=== PATIENT | female | born 1970 | race Caucasian/White ===

== ENCOUNTER 2017-04-08 10:26 | Observation (INO) | payer BC ==
[~2017-04-08 10:26] MED LIST: METRONIDAZOLE PREMIXED IVPB 50 ML IVPB SCH
[2017-04-08 10:32] VITALS: BMI 36.7
--- NOTE | 2017-04-08 10:40 | PDOC ---
History of Present Illness - General History Source: Patient Exam Limitations: No Limitations - History of Present Illness Initial Comments: 04/08/17 11:23 The patient is a 46 year old female, with significant past medical history of a congenital heart disease (s/p surgical repair as an and cardiac cath at age 3), blood clotting disorder (Pt is unsure of the name), and recently diagnosed HTN, who presents to the emergency room with 3 days of severe, intermittent, lower abdominal pain that is 8/10 in severity and described as crampy. She explains that the abdominal pain began 3 days ago, and notes that multiple episodes of watery diarrhea started simultaneously. She initially thought that she was experiencing gas pain, so she took tums- which provided no relief. The pain is sometimes alleviated when laying on her stomach, however, the pain is so severe that it has been keeping her up at night. She reports associated symptoms of nausea, vomiting, diarrhea, and loss of appetite since the pain began. She notes that she recently changed her diet because of a diagnosis of HTN. She has been eating more vegetables, less red meat, no salt, and stopped drinking coffee, over the past 2 weeks. Denies recent travel. Denies fever, chills. Denies urinary symptoms. Allergies: none reported PCP: none <Maisha Green - Last Filed: 04/08/17 14:37> - General History Source: Patient Exam Limitations: No Limitations <Zakiya Buenrostro - Last Filed: 04/08/17 19:15> - General Chief Complaint: Pain Stated Complaint: ABD PAIN Time Seen by Provider: 04/08/17 10:36 Past History <Maisha Green - Last Filed: 04/08/17 14:37> - Past Medical History Other medical history: NONE - Surgical History Cardiac Surgery: Yes (CARDIAC CATH AT AGE 3) - Psycho/Social/Smoking Cessation Hx Anxiety: No Suicidal Ideation: No Smoking History: Never smoked Hx Alcohol Use: Yes (SOCIAL) Drug/Substance Use Hx: No Substance Use Type: None <Zakiya Buenrostro - Last Filed: 04/08/17 19:15> - Past Medical History Allergies/Adverse Reactions: Allergies Allergy/AdvReac Type Severity Reaction Status Date / Time No Known Allergies Allergy Verified 04/08/17 10:32 Home Medications: Ambulatory Orders NK [No Known Home Medication] 04/08/17 Review of Systems - Review of Systems Able to Perform ROS?: Yes Comments:: 04/08/17 11:27 GENERAL/CONSTITUTIONAL: No: fever, chills, weakness HEAD, EYES, EARS, NOSE AND THROAT: No: change in vision, ear pain, discharge, sore throat, throat swelling. CARDIOVASCULAR: No: chest pain, lightheadedness, palpitations, syncope RESPIRATORY: No: cough, shortness of breath, wheezing, hemoptysis, stridor. GASTROINTESTINAL: +nausea, +vomiting, +lower abdominal pain, +diarrhea, + loss of appetite secondary to the pain. GENITOURINARY: No: dysuria, hematuria, frequency, urgency, flank pain. MUSCULOSKELETAL: No: back pain, neck pain, joint pain, muscle swelling or pain SKIN: No: lesions, pallor, rash or easy bruising. NEUROLOGIC: No: headache, vertigo, paresthesias, weakness ENDOCRINE: No: unexplained weight gain or loss HEMATOLOGIC/LYMPHATIC: No: anemia, easy bleeding, swelling nodes <Maisha Green - Last Filed: 04/08/17 14:37> *Physical Exam - Vital Signs Last Vital Signs Temp Pulse Resp BP Pulse Ox 99.1 F 106 H 20 156/92 97 04/08/17 10:29 04/08/17 10:29 04/08/17 10:29 04/08/17 10:29 04/08/17 10:29 - Physical Exam Comments: 04/08/17 11:28 GENERAL: The patient is in no acute distress. EYES: PERRLA, EOMI, sclera anicteric, conjunctiva clear. LUNGS: Breath sounds equal, clear to auscultation bilaterally. No wheezes, and no crackles. HEART: +tachycardic, +murmur 3/6 along he left sternal border. Regular rhythm normal S1 and S2 without rub or gallop. ABDOMEN: +epigastric and lower abdominal tenderness to palpation. Soft, normoactive bowel sounds. No guarding, no rebound. EXTREMITIES: Normal range of motion, no edema. No clubbing or cyanosis. No erythema, or tenderness. NEUROLOGICAL: Cranial nerves II through XII grossly intact. Normal speech. No focal neurological deficits. MUSCULOSKELETAL: Back nontender to palpation, no CVA tenderness SKIN: Warm, Dry, normal turgor, no rashes or lesions noted. <Maisha Green - Last Filed: 04/08/17 14:37> - Vital Signs Last Vital Signs Temp Pulse Resp BP Pulse Ox 99.1 F 106 H 20 156/92 97 04/08/17 10:29 04/08/17 10:29 04/08/17 10:29 04/08/17 10:29 04/08/17 10:29 <Zakiya Buenrostro - Last Filed: 04/08/17 19:15> Heart Score/ECG Review #1 ECG reviewed & interpreted by me at: 19:13 04/08/17 19:13 Sinus tachycardia, rate of 112 bpm Right axis deviation RVH T wave inversion v2 no st elevations or depressions RSR' v1, v2 <Zakiya Buenrostro - Last Filed: 04/08/17 19:15> ED Treatment Course - LABORATORY CBC & Chemistry Diagram: 04/08/17 11:00 04/08/17 11:00 - ADDITIONAL ORDERS Additional order review: 04/08/17 11:00 RBC 5.52 H MCV 76.5 L MCHC 34.6 RDW 14.3 MPV 7.9 Neutrophils % 79.5 Lymphocytes % 12.9 Monocytes % 6.6 Eosinophils % 0.6 Basophils % 0.4 - RADIOLOGY Radiograph Interpretation: 04/08/17 14:37 EXAM#: TYPE/EXAM: RESULT: [id number] CT/ABDOMEN PELVIS CT WITH CONTRAST History : abdominal pain CT Scan of the abdomen and pelvis with oral and IV contrast; 90 cc Omnipaque 350 The liver, spleen, adrenal glands and pancreas are unremarkable. There are no gallstones. There is no hydronephrosis, renal masses or renal calculi. There is no retroperitoneal lymphadenopathy. There is no abdominal aortic aneurysm. The appendix is not identified There are no fluid collections in the abdomen or pelvis. There is no bowel obstruction. The bowel probably the mid and distal small bowel in the right lower quadrant and right upper quadrant is abnormal with mural thickening and surrounding inflammatory changes. The urinary bladder is unremarkable. The uterus is heterogeneous. Possibly representing a myomatous uterus IMPRESSION: Appendix not identified Right lower quadrant/right upper quadrant small bowel is abnormal with mural thickening and periinflammatory changes. Suggestive of a type of ileitis or bowel inflammation possibly infectious. Because the appendix is not identified its role in the inflammation cannot be excluded therefore further evaluation recommend Reported By: Rodney Nicholson MD 04/08/17 1429 - Medications Given in the ED: ED Medications Discontinued Medications Generic Name Dose Route Start Last Admin Trade Name Chintan PRN Reason Stop Dose Admin Morphine Sulfate 4 mg 04/08/17 11:06 04/08/17 11:20 Morphine Injection - IVPB 04/08/17 11:07 Not Given NOW ONE Ondansetron HCl 4 mg 04/08/17 11:06 04/08/17 11:20 Zofran Injection IVPB 04/08/17 11:07 4 mg ONCE ONE Administration <Maisha Green - Last Filed: 04/08/17 14:37> - LABORATORY CBC & Chemistry Diagram: 04/08/17 11:00 04/08/17 11:00 <Zakiya Buenrostro - Last Filed: 04/08/17 19:15> Medical Decision Making - Medical Decision Making 04/08/17 10:39 A portion of this note was documented by scribe services under my direction. I have reviewed the details of the note, within reason, and agree with the documentation with the following case summary and management plan written by me. Nursing documentation reviewed and incorporated into medical decision making 04/08/17 11:04 This is a 46-year-old female with a prior history of congenital heart disease ( status post surgical repair as the infant, status post cardiac catheter at age 3 ) disease, history of bleeding diathesis, recent diagnosis of hypertension who presents emergency department with abdominal pain. States that her symptoms began 3 days ago. At that time she noted lower abdominal pain, intractable diarrhea, vomiting. Since then she's had decreased po intake Each time that she has tried to eat, she feels nauseous No recent travel No raw sea foods No prior episodes like this On examination Tachy, LILLIE 3/6 Abd tenderness to palpation DD: gastroenteritis, colitis, sbo, diverticulitis Will do labs, ct abd and pelvis Morphine and zofran 04/08/17 11:07 04/08/17 13:09 Laboratory Tests 04/08/17 04/08/17 04/08/17 11:00 11:00 11:23 WBC 11.8 H Hgb 14.6 Hct 42.3 Plt Count 272 Sodium 139 Potassium 4.0 Chloride 103 Carbon Dioxide 25 Anion Gap 11 BUN 8 Creatinine 0.5 L Random Glucose 98 Total Amylase 22 L Lipase 95 Serum , Qual Negative Rectal temp still not performed Pt found hunched over bed in pain Refusing morphine Will try tylenol IV 04/08/17 14:59 CT demonstrates: bowel wall thickening in the RLQ Appendix not visualized Will start: Levaquin and Flagyl IV tylenol for pain Admit to hospitalist 04/08/17 14:59 04/08/17 15:49 Case reviewed with STEVEN Lorenz Call placed to Dr Machado <Zakiya Buenrostro - Last Filed: 04/08/17 19:15> *DC/Admit/Observation/Transfer - Attestations Scribe Attestion: 04/08/17 11:29 Documentation prepared by BRITTNEE Humphries, acting as medical billing specialist for Zakiya Buenrostro MD. <Maisha Green - Last Filed: 04/08/17 14:37> - Discharge Dispostion Admit: Yes <Zakiya Buenrostro - Last Filed: 04/08/17 19:15> Diagnosis at time of Disposition: Abdominal pain Qualifiers: Abdominal location: unspecified location Qualified Code(s): R10.9 - Unspecified abdominal pain - Discharge Dispostion Condition at time of disposition: Stable
[2017-04-08] MEDS ORDERED: morphine CARPU-JECT 4 MG/1 ML DISP.SYRIN IVPB ONE (11:06)
[2017-04-08] MEDS ORDERED: SODIUM CHLORIDE 1,000 ML IV STA (11:06)
[2017-04-08] MEDS ORDERED: ONDANSETRON 4 MG/2 ML VIAL IVPB ONE (11:06)
[2017-04-08 11:10] LABS: BASOPHIL 0.4 % (0-2.0); EOSINOPHIL 0.6 % (0-4.5); MCH 26.4 pg (25.7-33.7); MCHC 34.6 g/dl (32.0-36.0); MEAN CELL VOLUME 76.5 fl (80-96); MEAN PLT VOLUME 7.9 fl (7.5-11.1); NEUTROPHILS 79.5 % (42.8-82.8); PLATELET COUNT 272 K/MM3 (134-434); RDW 14.3 % (11.6-15.6); WHITE BLOOD COUNT 11.8 K/mm3 (4.0-10.0)
[2017-04-08] MEDS ORDERED: morphine CARPU-JECT 4 MG/1 ML DISP.SYRIN ONE (11:10)
[2017-04-08] MEDS ORDERED: ONDANSETRON 4 MG/2 ML VIAL ONE (11:10)
[2017-04-08 11:30] LABS: ALK PHOS 75 U/L (45-117); AMYLASE 22 U/L (25-115); ANION GAP 11 (8-16); BILIRUBIN,TOTAL 1.1 mg/dL (0.2-1.0); CALCIUM 8.9 mg/dL (8.5-10.1); CO2 25 mmol/L (21-32); CREATININE 0.5 mg/dL (0.55-1.02); GLUCOSE,RANDOM 98 mg/dL (74-106); SGOT/AST 5 U/L (15-37); SGPT/ALT 19 U/L (12-78); TOT PROT 7.3 g/dl (6.4-8.2)
[2017-04-08] MEDS ORDERED: LEVOFLOXACIN 500 MG IVPB 100 ML IVPB ONE ×2 (14:57→15:59)
[2017-04-08] MEDS ORDERED: METRONIDAZOLE 500 MG PREMIXED 100 ML IVPB ONE ×2 (14:57→15:00)
[2017-04-08] MEDS ORDERED: ACETAMINOPHEN 1000 MG/100 ML VIAL (NON FORMULARY) IVPB ONE (14:59)
[2017-04-08] MEDS ORDERED: ACETAMINOPHEN INJECTION 100 ML IVPB ONE (15:00)
--- NOTE | 2017-04-08 18:26 | CONSULT ---
- Consultation REQUESTING PROVIDER: Olegario Buenrostro MD CONSULT REQUEST: We have been asked to surgically evaluate this patient for ( specify). 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 PMHx: congenital heart disease; corrected PSHx: C_S ROS-as above only Home Medications Medication Instructions Recorded NK [No Known Home Medication] 04/08/17 Allergies Allergy/AdvReac Type Severity Reaction Status Date / Time No Known Allergies Allergy Verified 04/08/17 10:32 PHYSICAL EXAM: GENERAL: Awake, alert, and fully oriented, in no acute distress. HEAD: Normal with no signs of trauma. EYES: sclera anicteric, conjunctiva clear. NECK: Normal ROM, supple without lymphadenopathy, JVD, or masses. ABDOMEN: Soft, nontender, not distended, normoactive bowel sounds, no guarding, no rebound, no masses. No organomegaly. No hernias MUSCULOSKELETAL: Normal ROM at all joints. No bony deformities or tenderness. No CVA tenderness. UPPER EXTREMITIES: 2+ pulses, warm, well-perfused. No cyanosis. Cap refill <2 seconds. No peripheral edema. LOWER EXTREMITIES: 2+ pulses, warm, well-perfused. No calf tenderness. No peripheral edema. NEUROLOGICAL: Normal speech, gait not observed. PSYCH: Cooperative. Good eye contact. Appropriate mood and affect. SKIN: Warm, dry, normal turgor, no rashes or lesions noted. Vital Signs Temperature 99.1 F 04/08/17 10:29 Pulse Rate 98 H 04/08/17 16:00 Respiratory Rate 18 04/08/17 16:00 Blood Pressure 143/91 04/08/17 16:00 O2 Sat by Pulse Oximetry (%) 99 04/08/17 16:00 Lab Results WBC 11.8 K/mm3 (4.0-10.0) H 04/08/17 11:00 RBC 5.52 M/mm3 (3.60-5.2) H 04/08/17 11:00 Hgb 14.6 GM/dL (10.7-15.3) 04/08/17 11:00 Hct 42.3 % (32.4-45.2) 04/08/17 11:00 MCV 76.5 fl (80-96) L 04/08/17 11:00 MCHC 34.6 g/dl (32.0-36.0) 04/08/17 11:00 RDW 14.3 % (11.6-15.6) 04/08/17 11:00 Plt Count 272 K/MM3 (134-434) 04/08/17 11:00 Sodium 139 mmol/L (136-145) 04/08/17 11:00 Potassium 4.0 mmol/L (3.5-5.1) 04/08/17 11:00 Chloride 103 mmol/L (98-107) 04/08/17 11:00 Carbon Dioxide 25 mmol/L (21-32) 04/08/17 11:00 Anion Gap 11 (8-16) 04/08/17 11:00 BUN 8 mg/dL (7-18) 04/08/17 11:00 Creatinine 0.5 mg/dL (0.55-1.02) L 04/08/17 11:00 Random Glucose 98 mg/dL (74-106) 04/08/17 11:00 Calcium 8.9 mg/dL (8.5-10.1) 04/08/17 11:00 CT a/p reviewed IMP: abdominal pain/nausea/vomiting and CT evidence of enteritis and/or coloitis. PLAN; Suggest NPO/IVF/IVABS; no evidence of an acute surgical abdomen at this time and specifically appendicitis; w/u stool for O and P; culture etc.; ?GI input; will f/u. Visit type - Case Type Case Type: ED Admission - Emergency Emergency Visit: Yes Care time: The patient presented to the Emergency Department on the above date and was hospitalized for further evaluation of their emergent condition. - New patient This patient is new to me today: Yes Date on this admission: 04/08/17 - Critical Care Critical Care patient: No
[2017-04-08 18:54] LABS: URINE APPEARANCE SLCLOUDY; URINE BILIRUBIN NEGATIVE (NEGATIVE); URINE BLOOD 3+ (NEGATIVE); URINE COLOR YELLOW; URINE GLUCOSE (UA) NEGATIVE (NEGATIVE); URINE KETONE 2+ (NEGATIVE); URINE LEUK ESTERASE NEGATIVE (NEGATIVE); URINE NITRITE NEGATIVE (NEGATIVE); URINE UROBILINOGEN NEGATIVE mg/dL (0.2-1.0)
[2017-04-08 18:56] LABS: URINE PROTEIN 1+ (NEGATIVE)
[2017-04-08 18:58] LABS: URINE BACTERIA RARE /hpf (NONE SEEN); URINE RBC 863 /hpf (0-3); URINE WBC 82 /hpf (3-5)
--- NOTE | 2017-04-08 19:01 | HP ---
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 She was recently told she had high blood pressure after single reading at [employer]. She has not been diagnosed with HTN. Patient reports 3 days ago she ate homemade lasagna for lunch. About six hours later she began experiencing nausea and vomiting. About 12 hours later, she also began vomiting. The n/v/d continued for another 24-36 hours. Yesterday, the symptoms had mostly subsided, but last night, she developed severe cramping -type lower adominal pain. The pain was so severe she came to the ED this morning. She has not had any episodes of vomiting or diarrhea since her arrival in the ED at 10am this morning. Patient reports she recently changed her diet as part of a lifestyle modification to lower her elevated BP. She has been eating more vegetables (cooked, not raw), less red meat, no salt, and stopped drinking coffee. Patient denies fever, sweats, chills. Denies urinary symptoms. Denies recent travel. Denies fever, chills. Denies urinary symptoms. 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 Recent Travel: No PAST MEDICAL HISTORY: Hypertension Congenital heart defect Blood clotting disorder PAST SURGICAL HISTORY: Repair of congenital heart defect (infancy) Cardiac catheterization (age 3) Social History: Smoking: never Alcohol: social Drugs: none Family History: Allergies No Known Allergies Allergy (Verified 04/08/17 10:32) HOME MEDICATIONS: Home Medications Medication Instructions Recorded NK [No Known Home Medication] 04/08/17 REVIEW OF SYSTEMS CONSTITUTIONAL: Present: loss of appetite Absent: fever, chills, diaphoresis, generalized weakness, malaise, weight change HEENT: Absent: rhinorrhea, nasal congestion, throat pain, throat swelling, difficulty swallowing, mouth swelling, ear pain, eye pain, visual changes CARDIOVASCULAR: Absent: chest pain, syncope, palpitations, irregular heart rate, lightheadedness , peripheral edema RESPIRATORY: Absent: cough, shortness of breath, dyspnea with exertion, orthopnea, wheezing, stridor, hemoptysis GASTROINTESTINAL: Present: abdominal pain, nausea, vomiting, diarrhea Absent: abdominal distension, constipation, melena, hematochezia GENITOURINARY: Absent: dysuria, frequency, urgency, hesitancy, hematuria, flank pain, genital pain MUSCULOSKELETAL: Absent: myalgia, arthralgia, joint swelling, back pain, neck pain SKIN: Absent: rash, itching, pallor HEMATOLOGIC/IMMUNOLOGIC: Absent: easy bleeding, easy bruising, lymphadenopathy, frequent infections ENDOCRINE: Absent: unexplained weight gain, unexplained weight loss, heat intolerance, cold intolerance NEUROLOGIC: Absent: headache, focal weakness or paresthesias, dizziness, unsteady gait, seizure, mental status changes, bladder or bowel incontinence PSYCHIATRIC: Absent: anxiety, depression, suicidal or homicidal ideation, hallucinations. PHYSICAL EXAMINATION Vital Signs - 24 hr 04/08/17 04/08/17 04/08/17 10:29 16:00 18:28 Temperature 99.1 F 98.6 F Pulse Rate 106 H Pulse Rate [ 98 H 100 H Right Radial] Respiratory 20 18 18 Rate Blood Pressure 156/92 Blood Pressure 143/91 140/96 [Right Arm] O2 Sat by Pulse 97 99 98 Oximetry (%) GENERAL: Awake, alert, and fully oriented, in no acute distress. HEAD: Normal with no signs of trauma. EYES: Pupils equal, round and reactive to light, extraocular movements intact, sclera anicteric, conjunctiva clear. No lid lag. EARS, NOSE, THROAT: Ears normal, nares patent, oropharynx clear without exudates. Moist mucous membranes. NECK: Normal range of motion, supple without lymphadenopathy, JVD, or masses. LUNGS: Breath sounds equal, clear to auscultation bilaterally. No wheezes, and no crackles. No accessory muscle use. HEART: Regular rate and rhythm, normal S1 and S2 without murmur, rub or gallop. ABDOMEN: Soft, nontender, not distended, normoactive bowel sounds, no guarding, no rebound, no masses. No hepatomegaly or splenomegaly. MUSCULOSKELETAL: Normal range of motion at all joints. No bony deformities or tenderness. No CVA tenderness. UPPER EXTREMITIES: 2+ pulses, warm, well-perfused. No cyanosis. No clubbing. No peripheral edema. LOWER EXTREMITIES: 2+ pulses, warm, well-perfused. No calf tenderness. No peripheral edema. NEUROLOGICAL: Cranial nerves II-XII intact. Normal speech. PSYCHIATRIC: Cooperative. Good eye contact. Appropriate mood and affect. SKIN: Warm, dry, normal turgor, no rashes or lesions noted, normal capillary refill. Laboratory Results - last 24 hr 04/08/17 04/08/17 04/08/17 11:00 11:00 11:23 WBC 11.8 H RBC 5.52 H Hgb 14.6 Hct 42.3 MCV 76.5 L MCH 26.4 MCHC 34.6 RDW 14.3 Plt Count 272 MPV 7.9 Neutrophils % 79.5 Lymphocytes % 12.9 Monocytes % 6.6 Eosinophils % 0.6 Basophils % 0.4 Sodium 139 Potassium 4.0 Chloride 103 Carbon Dioxide 25 Anion Gap 11 BUN 8 Creatinine 0.5 L Creat Clearance w eGFR > 60 Random Glucose 98 Calcium 8.9 Total Bilirubin 1.1 H AST 5 L ALT 19 Alkaline Phosphatase 75 Total Protein 7.3 Albumin 4.0 Total Amylase 22 L Lipase 95 Serum , Qual Urine Color Yellow Urine Appearance Slcloudy Urine pH 5.0 Urine Protein 1+ H Urine Glucose (UA) Negative Urine Ketones 2+ H Urine Blood 3+ H Urine Nitrite Negative Urine Bilirubin Negative Urine Urobilinogen Negative Ur Leukocyte Esterase Negative Urine RBC 863 Urine WBC 82 Ur Epithelial Cells Rare Urine Bacteria Rare 04/08/17 11:23 WBC RBC Hgb Hct MCV MCH MCHC RDW Plt Count MPV Neutrophils % Lymphocytes % Monocytes % Eosinophils % Basophils % Sodium Potassium Chloride Carbon Dioxide Anion Gap BUN Creatinine Creat Clearance w eGFR Random Glucose Calcium Total Bilirubin AST ALT Alkaline Phosphatase Total Protein Albumin Total Amylase Lipase Serum , Qual Negative Urine Color Urine Appearance Urine pH Urine Protein Urine Glucose (UA) Urine Ketones Urine Blood Urine Nitrite Urine Bilirubin Urine Urobilinogen Ur Leukocyte Esterase Urine RBC Urine WBC Ur Epithelial Cells Urine Bacteria ASSESSMENT/PLAN 46 year-old female with a PMH significant for congenital heart disease s/p surgical repair as an infant, and a platelet disorder. Admitted for abdominal pain, nausea, vomiting, and diarrhea. Abdominal pain --afebrile, mild leukocytosis --04/08 CTAP: RLQ/RUQ small bowel is abnormal with mural thickening and periinflammatory changes, ileitis v. bowel inflammation v. infectious; appendix not identified --seen and evaluated by surgery Dr. Machado; no evidence of acute surgical abdomen at this time, specifically appendicitis --stool studies pending --continue IV levofloxacin and IV metronidazole Pyuria --denies symptoms --82 WBCs --urine culture pending --on empiric levofloxacin Blood clotting disorder, NOS --told 16 years ago following a that she has a platelet disorder that leads to a bleeding time of "16 minutes"; has never taken medication, has had no surgeries since, has had no bleeding episodes --denies hematuria (has menstrual period which explains RBCs in urine), hematemesis, hematochezia --coags ordered --h/h stable, continue to monitor F/E/N Fluids: D51/2 @ 125mL/hr Electrolytes: replete as indicated Nutrition: NPO DVT prophylaxis: no chemical prophylaxis for now; oob, ambulation Visit type - Emergency Visit Emergency Visit: Yes ED Registration Date: 04/08/17 Care time: The patient presented to the Emergency Department on the above date and was hospitalized for further evaluation of their emergent condition. - New Patient This patient is new to me today: Yes Date on this admission: 04/10/17 - Critical Care Critical Care patient: No
[2017-04-08] MEDS: DEXTROSE 5%-0.45% SALINE 1,000 ML IV SCH (21:10)
[2017-04-09] MEDS ORDERED: PT OWN MED DRAWER 7, Y5N ONE ×2 (02:34→11:04)
[2017-04-09] MEDS: METRONIDAZOLE PREMIXED IVPB 50 ML IVPB SCH ×3 (02:36→17:57)
[2017-04-09] MEDS: DEXTROSE 5%-0.45% SALINE 1,000 ML IV SCH (03:09)
[2017-04-09] MEDS ORDERED: ACETAMINOPHEN 1000 MG/100 ML VIAL (NON FORMULARY) IVPB ONE (03:20)
[2017-04-09 08:29] LABS: BASOPHIL 1.2 % (0-2.0); EOSINOPHIL 2.2 % (0-4.5); MCH 26.7 pg (25.7-33.7); MCHC 34.5 g/dl (32.0-36.0); MEAN CELL VOLUME 77.5 fl (80-96); MEAN PLT VOLUME 8.2 fl (7.5-11.1); NEUTROPHILS 68.3 % (42.8-82.8); PLATELET COUNT 256 K/MM3 (134-434); RDW 14.4 % (11.6-15.6)
[2017-04-09 08:41] LABS: INR 1.42 (0.82-1.09); PROTHROMBIN TIME (PATIENT) 15.7 SEC (9.98-11.88)
[2017-04-09 08:52] LABS: ALBUMIN 3.5 g/dl (3.4-5.0); ANION GAP 11 (8-16); CALCIUM 8.4 mg/dL (8.5-10.1); CO2 24 mmol/L (21-32); GLUCOSE,RANDOM 124 mg/dL (74-106); MAGNESIUM 1.9 mg/dL (1.8-2.4); PHOSPHOROUS 2.6 mg/dL (2.5-4.9)
[2017-04-09 08:56] LABS: ALK PHOS 68 U/L (45-117); CREATININE 0.5 mg/dL (0.55-1.02); SGOT/AST 8 U/L (15-37); SGPT/ALT 18 U/L (12-78); TOT PROT 6.5 g/dl (6.4-8.2)
--- NOTE | 2017-04-09 09:46 | EKG ---
Test Reason : Blood Pressure : / mmHG Vent. Rate : 112 BPM Atrial Rate : 112 BPM P-R Int : 160 ms QRS Dur : 084 ms QT Int : 346 ms P-R-T Axes : 016 175 030 degrees QTc Int : 472 ms SINUS TACHYCARDIA POSSIBLE LEFT ATRIAL ENLARGEMENT POSSIBLE RIGHT VENTRICULAR HYPERTROPHY RSR' OR QR PATTERN IN V1 SUGGESTS RIGHT VENTRICULAR CONDUCTION DELAY POSSIBLE LATERAL INFARCT , AGE UNDETERMINED ABNORMAL ECG NO PREVIOUS ECGS AVAILABLE Confirmed by MD PASTORA, LESLIE ([id number]) on 04/09/2017 9:45:48 AM Referred By: Confirmed By:LSELIE GUILLORY MD
[2017-04-09] MEDS ORDERED: LEVOFLOXACIN 500 MG IVPB 100 ML IVPB SCH (10:00)
--- NOTE | 2017-04-09 10:44 | PN ---
Progress Note (short form) - Note Progress Note: Attending Surgeon No c/o; feels better; wants to eat; stool was given for appropriate studies VSS AF abdomen-soft; flat and non tender IMP: improved; no evidence of an acute surgical abdomen or reason for intervention PLAN:TRial of diet and advance as tolerated; continue present tx. Anant Machado MD FACS
[2017-04-09] MEDS: ENOXAPARIN NA (PORCINE) 40 MG/0.4 ML DISP.SYRIN SQ SCH ×2 (11:07→11:30)
--- NOTE | 2017-04-09 14:28 | CON.GI ---
Consult Consult Specialty:: GASTROENTEROLOGY - History of Present Illness Chief Complaint: ABDOMINAL PAIN, VOMITING AND DIARRHEA History of Present Illness: THIS IS A 46 YEAR OLD FEMALE WITH A PRIOR NORMAL COLONOSCOPY (DONE FOR LLQ PAIN FOUND TO BE RELATED TO OVARAIN TORSION) ADMITTED WITH ABDOMINAL PAIN, VOMITING AND DIARRHEA. ON SHE DEVELOPED MID ABDOMINAL PAIN ASSOCIATED WITH VOMITING (NON BLOODY). SHE DENIED FEVER,CHILLS, RECTAL BLEEDING OR HEMATEMESIS. SHE TOOK TUMS AND FELT BETTER BUT THEN SHE DEVELOPED DIARRHEA WITHOUT BLOOD. THIS CONTINUED ON MONDAY WITH MULTIPLE LOOSES STOOLS. SHE STATES SOME OGF THEM HAD FORM TO THEM. SHE SPOKE WITH HER BROTHER WHO RECENTLY WAS HERE FOR DIVERTICULITIS AND WHEN SHE DESCRIBED HER SYMPTOMS HE CONVINCED HER TO COME TO THE ED. IN THE ED A CT SCAN SHOWED AN ENTERITIS AND A WBC COUNT OF 11.8. STOOL O&P SENT BUT NO STOOL CULTURE. PATIENT PLACED ON IV ANTIBOITICS. UA AND STOOL + BLOOD BUT PATIENT NOW HAS MENSTRUATION. - History Source History Provided By: Patient Limitations to Obtaining History: No Limitations - Past Medical History PLANNING RN: No: Alzheimer's, CVA, Dementia, Migraine, Multiple Sclerosis, Peripheral Neuropathy, Parkinson's, Seizure, Syncope, TIA, Vertigo, Other Cardio/Vascular: No: AFIB, Aneurysm, Aortic Insufficiency, Aortic Stenosis, CAD , CHF, Deep Vein Thrombosis, HTN, Hyperlipdemia, [place], Mitral Insufficiency, Mitral Stenosis, Murmur, Pulmonary Hypertension, Other Pulmonary: No: Asthma, Bronchitis, Cancer, COPD, O2 Dependent, Pneumonia, Previously Intubated, Pulmonary Embolus, Pulmonary Fibrosis, Sleep Apnea, Other Gastrointestinal: Yes: Other (SEE HPI) Hepatobiliary: No: Cirrhosis, Cholelithiasis, Cholecystitis, Choledocholithiasis , Hepatitis A, Hepatitis B, Hepatitis C, Other Renal/: No: Renal Failure, Renal Inusuff, BPH, Cancer, Hematuria, Hemodialysis , Neurogenic Bladder, Renal Calculi, UTI, Other Reproductive: Yes: Other (LEFT OVARIAN CYST) ...LMP: 04/08/17 ...: No Infectious Disease: No: AIDS, C-Diff, Herpes Zoster, HIV, MRSA, STD's, Tuberculosis, VREF, Other Psych: No: Addictions, Anxiety, Bipolar, Depression, Panic, Psychosis, Schizophrenia, Other Musculoskeletal: No: Bursitis, Chronic low back pain, Hemiparesis, Hemiplegia, Osteoarthritis, Paraplegia, Other Rheumatology: No: Fibromyalgia, Gout, Lupus, Rheumatoid Arthritis, Sarcoidosis, Vasculitis, Other ENT: No: Allergic Rhinitis, Sinusitis, Other Endocrine: No: [place]'s Disease, [place]'s Disease, Diabetes Insipidus, Diabetes Mellitus, Hyperparathyroidism, Hyperthyroidism, Hypothyroidism, Osteopenia, SIADH, Other Dermatology: No: Basal Cell, Cellulitis, Eczema, Melanoma, Psoriasis, Squamous Cell, Other - Alcohol/Substance Use Hx Alcohol Use: No (SOCIAL) - Smoking History Smoking history: Never smoked Home Medications - Allergies Allergies/Adverse Reactions: Allergies Allergy/AdvReac Type Severity Reaction Status Date / Time No Known Allergies Allergy Verified 04/08/17 10:32 - Home Medications Home Medications: Ambulatory Orders NK [No Known Home Medication] 04/08/17 Family Disease History - Family Disease History Family Disease History: CA: Mother (BREAST CNACER), Other: Brother ( DIVERTICULITIS) Review of Systems - Review of Systems Constitutional: reports: Loss of Appetite Eyes: reports: No Symptoms HENT: reports: No Symptoms Neck: reports: No Symptoms Cardiovascular: reports: No Symptoms Respiratory: reports: No Symptoms Gastrointestinal: reports: Abdominal Pain, Diarrhea, Vomiting Genitourinary: reports: No Symptoms Breasts: reports: No Symptoms Reported Musculoskeletal: reports: No Symptoms Integumentary: reports: No Symptoms Neurological: reports: No Symptoms Endocrine: reports: No Symptoms Hematology/Lymphatic: reports: No Symptoms Psychiatric: reports: No Symptoms Physical Exam-GI Vital Signs: Vital Signs Temperature 97.9 F 04/09/17 06:00 Pulse Rate 92 H 04/09/17 06:00 Respiratory Rate 22 04/09/17 06:00 Blood Pressure 147/81 04/09/17 06:00 O2 Sat by Pulse Oximetry (%) 98 04/08/17 18:28 Constitutional: Yes: Obese Eyes: Yes: Conjunctiva Clear HENT: Yes: Atraumatic Neck: Yes: Supple Cardiovascular: Yes: Regular Rate and Rhythm, Murmur Respiratory: Yes: WNL Gastrointestinal Inspection: Yes: WNL ...Auscultate: Yes: Normoactive Bowel Sounds ...Palpate: Yes: Soft Musculoskeletal: Yes: WNL Extremities: Yes: WNL Edema: No Integumentary: Yes: WNL Neurological: Yes: WNL, Alert, Oriented Labs: CBC, BMP 04/09/17 06:00 04/09/17 06:00 INR, PTT INR 1.42 (0.82-1.09) H 04/09/17 06:00 Laboratory Tests 04/08/17 04/08/17 04/08/17 11:00 11:00 11:23 WBC 11.8 H RBC 5.52 H Hgb 14.6 Hct 42.3 MCV 76.5 L MCH 26.4 MCHC 34.6 RDW 14.3 Plt Count 272 INR Sodium 139 Potassium 4.0 Chloride 103 Carbon Dioxide 25 Anion Gap 11 BUN 8 Creatinine 0.5 L Creat Clearance w eGFR Random Glucose 98 Calcium 8.9 Phosphorus Magnesium Total Bilirubin 1.1 H AST 5 L ALT 19 Alkaline Phosphatase 75 Total Protein 7.3 Albumin 4.0 Total Amylase 22 L Lipase 95 Urine Protein 1+ H Urine Glucose (UA) Negative Urine Ketones 2+ H Urine Blood 3+ H Urine Nitrite Negative Urine Bilirubin Negative Urine Urobilinogen Negative Ur Leukocyte Esterase Negative Urine RBC 863 Urine WBC 82 Ur Epithelial Cells Rare Urine Bacteria Rare Stool Occult Blood Stool O & P [place] 04/08/17 04/08/17 04/09/17 22:20 22:20 06:00 WBC 8.0 D RBC 5.10 Hgb 13.6 Hct 39.5 MCV 77.5 L MCH 26.7 MCHC 34.5 RDW 14.4 Plt Count 256 INR Sodium Potassium Chloride Carbon Dioxide Anion Gap BUN Creatinine Creat Clearance w eGFR Random Glucose Calcium Phosphorus Magnesium Total Bilirubin AST ALT Alkaline Phosphatase Total Protein Albumin Total Amylase Lipase Urine Protein Urine Glucose (UA) Urine Ketones Urine Blood Urine Nitrite Urine Bilirubin Urine Urobilinogen Ur Leukocyte Esterase Urine RBC Urine WBC Ur Epithelial Cells Urine Bacteria Stool Occult Blood Positive Stool O & P [place] Pending 04/09/17 04/09/17 06:00 06:00 WBC RBC Hgb Hct MCV MCH MCHC RDW Plt Count INR 1.42 H Sodium 141 Potassium 3.5 Chloride 106 Carbon Dioxide 24 Anion Gap 11 BUN 4 L D Creatinine 0.5 L Creat Clearance w eGFR > 60 Random Glucose 124 H D Calcium 8.4 L Phosphorus 2.6 Magnesium 1.9 Total Bilirubin 1.0 AST 8 L D ALT 18 Alkaline Phosphatase 68 Total Protein 6.5 Albumin Total Amylase Lipase Urine Protein Urine Glucose (UA) Urine Ketones Urine Blood Urine Nitrite Urine Bilirubin Urine Urobilinogen Ur Leukocyte Esterase Urine RBC Urine WBC Ur Epithelial Cells Urine Bacteria Stool Occult Blood Stool O & P [place] Imaging - Results Cat Scan: Image Reviewed Problem List - Problems (1) Gastroenteritis Assessment/Plan: ALL HER SYMPTOMS HAVE RESOLVED. PRIOR RECENT COLONOSCOPY WAS NEGATIVE. HER EXAM IS NORMAL. HER BOWEL MOVEMENTS HAVE SLOWED AND ARE NONBLOODY. NOT ALL APPROPRIATE STOOL STUDIES SENT. NO STOOL CULTURES DONE. I HAVE SENT STOOL TO THE LAB AND INCLUDED A STOOL CALPROTECTIN. IF SHE TOLERATES THE LOW RESIDUE DIET AND REMAINS THIS STABLE I HAVE NO OBJECTION TO DISCHARGE WITH FOLLOW UP TO HER PMD. (HAS APPOINTMENT) ZO CARR MD Code(s): K52.9 - NONINFECTIVE GASTROENTERITIS AND COLITIS, UNSPECIFIED (2) Vomiting Code(s): R11.10 - VOMITING, UNSPECIFIED (3) Diarrhea Code(s): R19.7 - DIARRHEA, UNSPECIFIED
[2017-04-09] MEDS ORDERED: ACETAMINOPHEN 325 MG TABLET (FP) PO PRN (16:08)
--- NOTE | 2017-04-09 16:16 | PN ---
Physical Exam: SUBJECTIVE: Patient seen and examined OBJECTIVE: Vital Signs Period Temp Pulse Resp BP Sys/[place] Pulse Ox Last 24 Hr 97.9 F-98.8 F 92-102 18-22 127-152/69-96 98 GENERAL: The patient is awake, alert, and fully oriented, in no acute distress. HEAD: Normal with no signs of trauma. EYES: PERRL, extraocular movements intact, sclera anicteric, conjunctiva clear. No ptosis. ENT: Ears normal, nares patent, oropharynx clear without exudates, moist mucous membranes. NECK: Trachea midline, full range of motion, supple. LUNGS: Breath sounds equal, clear to auscultation bilaterally, no wheezes, no crackles, no accessory muscle use. HEART: Regular rate and rhythm, S1, S2 without murmur, rub or gallop. ABDOMEN: Soft, nontender, nondistended, normoactive bowel sounds, no guarding, no rebound, no hepatosplenomegaly, no masses. EXTREMITIES: 2+ pulses, warm, well-perfused, no edema. NEUROLOGICAL: Cranial nerves II through XII grossly intact. Normal speech, gait not observed. PSYCH: Normal mood, normal affect. SKIN: Warm, dry, normal turgor, no rashes or lesions noted Laboratory Results - last 24 hr 04/08/17 04/08/17 04/08/17 21:30 21:35 22:20 WBC RBC Hgb Hct MCV MCH MCHC RDW Plt Count MPV Neutrophils % Lymphocytes % Monocytes % Eosinophils % Basophils % INR PTT (Actin FS) 33.7 Sodium Potassium Chloride Carbon Dioxide Anion Gap BUN Creatinine Creat Clearance w eGFR POC Glucometer 103 Random Glucose Calcium Phosphorus Magnesium Total Bilirubin AST ALT Alkaline Phosphatase Total Protein Albumin Stool Occult Blood Positive 04/09/17 04/09/17 04/09/17 05:58 06:00 06:00 WBC 8.0 D RBC 5.10 Hgb 13.6 Hct 39.5 MCV 77.5 L MCH 26.7 MCHC 34.5 RDW 14.4 Plt Count 256 MPV 8.2 Neutrophils % 68.3 Lymphocytes % 20.4 D Monocytes % 7.9 Eosinophils % 2.2 D Basophils % 1.2 INR PTT (Actin FS) Sodium 141 Potassium 3.5 Chloride 106 Carbon Dioxide 24 Anion Gap 11 BUN 4 L D Creatinine 0.5 L Creat Clearance w eGFR > 60 POC Glucometer 134 Random Glucose 124 H D Calcium 8.4 L Phosphorus 2.6 Magnesium 1.9 Total Bilirubin 1.0 AST 8 L D ALT 18 Alkaline Phosphatase 68 Total Protein 6.5 Albumin 3.5 Stool Occult Blood 04/09/17 06:00 WBC RBC Hgb Hct MCV MCH MCHC RDW Plt Count MPV Neutrophils % Lymphocytes % Monocytes % Eosinophils % Basophils % INR 1.42 H PTT (Actin FS) Sodium Potassium Chloride Carbon Dioxide Anion Gap BUN Creatinine Creat Clearance w eGFR POC Glucometer Random Glucose Calcium Phosphorus Magnesium Total Bilirubin AST ALT Alkaline Phosphatase Total Protein Albumin Stool Occult Blood Active Medications Generic Name Dose Route Start Last Admin Trade Name Freq PRN Reason Stop Dose Admin Acetaminophen 650 mg 04/09/17 16:08 Tylenol - PO Q6H PRN FEVER OR PAIN Enoxaparin Sodium 40 mg 04/09/17 10:00 04/09/17 11:30 Lovenox - SQ Not Given DAILY BROCK Dextrose/Sodium Chloride 1,000 mls @ 125 mls/hr 04/08/17 19:15 04/09/17 03:09 D5-1/2ns - IV 125 mls/hr ASDIR BROCK Administration Levofloxacin 100 mls @ 100 mls/hr 04/09/17 10:00 04/09/17 11:07 Levaquin 500 Mg Premixed Ivpb - IVPB 100 mls/hr DAILY BROCK Administration Metronidazole 50 mls @ 50 mls/hr 04/09/17 02:00 04/09/17 12:33 Flagyl 250mg Premixed Ivpb - IVPB 50 mls/hr Q8H-IV BROCK Administration ASSESSMENT/PLAN:
--- NOTE | 2017-04-09 17:30 | DS ---
Physical Exam: SUBJECTIVE: Patient seen and examined at the bedside. She denies any nausea, vomiting or diarrhea. She reports tolerating her regular dinner without any bloating, abdominal pain or discomfort. She is asking to go home. States she has her menstrual cycle OBJECTIVE: GI notes reviewed Vital Signs Period Temp Pulse Resp BP Sys/[place] Pulse Ox Last 24 Hr 97.9 F-98.8 F 92-102 18-22 127-152/69-96 98 PHYSICAL EXAM GENERAL: The patient is awake, alert, and fully oriented, in no acute distress. HEAD: Normal with no signs of trauma. EYES: PERRL, extraocular movements intact, sclera anicteric, conjunctiva clear. ENT: Ears normal, nares patent, oropharynx clear without exudates, moist mucous membranes. NECK: Trachea midline, full range of motion, supple. ABDOMEN: Soft, nontender, nondistended, normoactive bowel sounds, no guarding, no rebound, no hepatosplenomegaly, no masses. EXTREMITIES: 2+ pulses, warm, well-perfused, no edema. NEUROLOGICAL: Normal speech, gait not observed. PSYCH: Normal mood, normal affect. SKIN: Warm, dry, normal turgor, no rashes or lesions noted. LABS Laboratory Results - last 24 hr 04/08/17 04/08/17 04/08/17 21:30 21:35 22:20 WBC RBC Hgb Hct MCV MCH MCHC RDW Plt Count MPV Neutrophils % Lymphocytes % Monocytes % Eosinophils % Basophils % INR PTT (Actin FS) 33.7 Sodium Potassium Chloride Carbon Dioxide Anion Gap BUN Creatinine Creat Clearance w eGFR POC Glucometer 103 Random Glucose Calcium Phosphorus Magnesium Total Bilirubin AST ALT Alkaline Phosphatase Total Protein Albumin Stool Occult Blood Positive 04/09/17 04/09/17 04/09/17 05:58 06:00 06:00 WBC 8.0 D RBC 5.10 Hgb 13.6 Hct 39.5 MCV 77.5 L MCH 26.7 MCHC 34.5 RDW 14.4 Plt Count 256 MPV 8.2 Neutrophils % 68.3 Lymphocytes % 20.4 D Monocytes % 7.9 Eosinophils % 2.2 D Basophils % 1.2 INR PTT (Actin FS) Sodium 141 Potassium 3.5 Chloride 106 Carbon Dioxide 24 Anion Gap 11 BUN 4 L D Creatinine 0.5 L Creat Clearance w eGFR > 60 POC Glucometer 134 Random Glucose 124 H D Calcium 8.4 L Phosphorus 2.6 Magnesium 1.9 Total Bilirubin 1.0 AST 8 L D ALT 18 Alkaline Phosphatase 68 Total Protein 6.5 Albumin 3.5 Stool Occult Blood 04/09/17 06:00 WBC RBC Hgb Hct MCV MCH MCHC RDW Plt Count MPV Neutrophils % Lymphocytes % Monocytes % Eosinophils % Basophils % INR 1.42 H PTT (Actin FS) Sodium Potassium Chloride Carbon Dioxide Anion Gap BUN Creatinine Creat Clearance w eGFR POC Glucometer Random Glucose Calcium Phosphorus Magnesium Total Bilirubin AST ALT Alkaline Phosphatase Total Protein Albumin Stool Occult Blood HOSPITAL COURSE: Date of Admission:04/08/17 Date of Discharge: 04/09/17 Patient is a 46 year female admitted on 04/08/2017 with abdominal pain, nausea, vomiting, and diarrhea. All her symptoms are now resolved, and she is tolerating a regular diet. Imaging: CTAP 04/08/2017: RLQ/RUQ small bowel is abnormal with mural thickening and periinflammatory changes, ileitis v. bowel inflammation v. infectious; appendix not identified GI: Abdominal Pain - resolved A/P: Remains afebrile, vitals stable, leukocytosis now resolved She tolerated a low residue, regular diet without any further abdominal pain, nausea, vomiting and diarrhea Stool + and Urine + for blood but patient reports having her menstrual cycle Will continue PO Levaquin and Flagyl PO for 6 more days She had a recent colonscopy which was negative She reports that her bowel movements have slowed down and reports them to be brown in color, non bloody Her hmg/hct is stable Stool sent to lab by GI She tolerated a low residue diet She agrees to follow GI and her PCP outpatient Disposition: Discharge home with close PCP and GI follow up. New PCP referral made at patient's request. Full code Minutes to complete discharge: 60 Discharge Summary Reason For Visit: ABD PAIN Current Active Problems Abdominal pain (Acute) Diarrhea (Acute) Gastroenteritis (Acute) Vomiting (Acute) Condition: Improved - Instructions Diet, Activity, Other Instructions: Mrs Barajas: Please follow up with Dr. Zamora within 1 week after discharge. A new PCP has been referred to you, please make an appointment to have your blood work repeated within 1 week. All your medications have been called into your pharmacy. If you have any questions, please call us at: [phone] [facility] Referrals: Saturnino Castillo MD [Staff Physician] - Litzy Arias MD [Staff Physician] - Disposition: HOME - Home Medications Comprehensive Discharge Medication List: Ambulatory Orders NK [No Known Home Medication] 04/08/17 This patient is new to me today: Yes Date on this admission: 04/09/17 Emergency Visit: Yes ED Registration Date: 04/08/17 Care time: The patient presented to the Emergency Department on the above date and was hospitalized for further evaluation of their emergent condition. Critical Care patient: No - Discharge Referral [facility]erred to [facility] Med P.C.: No
[2017-04-09 19:55] VITALS: BP 144/89; PULSE 98; TEMP 98
== END 2017-04-09 19:00 | disposition home or self-care (01) ==
LOC: JER 10:26 → JERBED 15:59 → J6S 21:04
PROVIDERS: ADMIT Internal Medicine; ATTEND Nurse Practitioner Family
PROC: 3E03329 Introduction of Other Anti-infective into Peripheral Vein, Percutaneous Approach (ICD-10-PCS; principal; 2017-04-08)
PROC: 3E033GC Introduction of Other Therapeutic Substance into Peripheral Vein, Percutaneous Approach (ICD-10-PCS; 2017-04-08)
PROC: 3E0337Z Introduction of Electrolytic and Water Balance Substance into Peripheral Vein, Percutaneous Approach (ICD-10-PCS; 2017-04-08)
DX: K52.9 Noninfective gastroenteritis and colitis, unspecified (principal); R10.30 Lower abdominal pain, unspecified; R19.7 Diarrhea, unspecified; D68.9 Coagulation defect, unspecified; Q24.9 Congenital malformation of heart, unspecified; D72.829 Elevated white blood cell count, unspecified; N39.0 Urinary tract infection, site not specified; E66.9 Obesity, unspecified; Z68.36 Body mass index [BMI] 36.0-36.9, adult
CPT/HCPCS: 36415; 71010-TC; 74177-TC; 80053; 81003; 81015; 82150; 82272; 83690; 83735; 84100; 84703; 85025; 85610; 85730; 87045; 87046; 87086; 87177; 87205; 87209; 87324; 87449; 93005; 93010; 99284-25; G0378